=== PATIENT | male | born 1945 | race Asian ===

== ENCOUNTER 2018-08-30 08:44 | Day surgery (SDC) | payer MEDICARE, OTHER ==
[2018-08-30] MEDS ORDERED: PROPOFOL 40 ML (11:23)
== END 2018-08-30 13:36 | disposition home or self-care (01) ==
LOC: GIL 08:44
DX: R19.5 Other fecal abnormalities (principal); D12.5 Benign neoplasm of sigmoid colon; K64.4 Residual hemorrhoidal skin tags; I10 Essential (primary) hypertension
CPT/HCPCS: 45380; 88305